=== PATIENT | male | born 1970 | race Caucasian/White ===

== ENCOUNTER 2017-09-20 10:13 | Emergency (ER) | payer SELFPAY ==
[~2017-09-20] VITALS: Ht 172.7 cm; Wt 55.0 kg
[~2017-09-20 10:13] MED LIST: AUGMENTIN875TAB PO; EC-NAPROSYN500 MG PO; FLEXERIL OR; NAPROSYN500 MG PO; TRAMADOL HYDROC50 MG PO; ULTRAM50 MG OR
[2017-09-20 10:51] LABS: HEMATOCRIT 30.4 % (39.0-50.0); HEMOGLOBIN 11.1 g/dl (14.0-18.0); MEAN CORPUSCULAR HGB 33.9 pG CALC (26.0-32.0); MEAN CORPUSCULAR HGB CONC 36.5 g/L CALC (32.0-36.0); NEUT# 8.08 thou/uL (1.82-7.42); RED BLOOD COUNT 3.27 mill/uL (4.70-6.10)
[2017-09-20] MEDS ORDERED: GLAUCOMA EYE DROPS (10:58)
[2017-09-20 11:10] LABS: ALKALINE PHOSPHATASE 135 u/l (38-126); ANION GAP 17 (6-22 (CALC)); BILIRUBIN, TOTAL 0.5 mg/dL (0.0-1.4); BUN 3 mg/dL (9-20); BUN/CREATININE RATIO 5 (12-20 (CALC)); CALCIUM 8.7 mg/dL (8.4-10.2); CARBON DIOXIDE 21 mmol/l (22-30); CHLORIDE 84 mmol/l (95-108); CREATININE 0.5 mg/dL (0.7-1.3); GFR > 60 ML/MIN (>=60 (CALC)); GFR FOR AFR.AMER. > 60 ML/MIN (>=60 (CALC)); GLUCOSE 94 mg/dL (75-110); POTASSIUM 4.2 mmol/l (3.5-5.1); SGOT/AST 36 u/l (17-59); SGPT/ALT 28 u/l (21-72); TOTAL PROTEIN 6.9 g/dL (6.3-8.2)
[2017-09-20 11:15] LABS: SODIUM 118 mmol/l (137-146)
[2017-09-20 11:22] LABS: MYOGLOBIN 21 ng/mL (0 - 121)
[2017-09-20 14:51] VITALS: BP 171/91
== END 2017-09-20 14:35 | disposition short-term general hospital (02) | DRG 641 ==
LOC: ED 10:13
PROVIDERS: Emergency Medicine
PROC: 02HV33Z Insertion of Infusion Device into Superior Vena Cava, Percutaneous Approach (ICD-10-PCS; principal; 2017-09-20)
DX: E87.1 Hypo-osmolality and hyponatremia (principal); R91.8 Other nonspecific abnormal finding of lung field; R59.0 Localized enlarged lymph nodes; F17.210 Nicotine dependence, cigarettes, uncomplicated
CPT/HCPCS: Q9967

== ENCOUNTER 2018-04-05 00:52 | Emergency (ER) | payer OTHER ==
[~2018-04-05] VITALS: Ht 167.6 cm; Wt 65.9 kg
[~2018-04-05 00:52] MED LIST changes: +GLAUCOMA EYE DROPS
[2018-04-05] MEDS ORDERED: SPIRONOLACT25 MG PO (01:09)
[2018-04-05] MEDS ORDERED: LASIX20 MG PO (01:10)
[2018-04-05] MEDS ORDERED: SOD CHLORIDE1 GM PO (01:11)
[2018-04-05] MEDS ORDERED: PERCOCET 5/321 COMBO PO (01:11)
[2018-04-05 01:38] LABS: HEMATOCRIT 29.4 % (39.0-50.0); HEMOGLOBIN 10.1 g/dl (14.0-18.0); IMMATURE GRANULOCYTES 2.2 % (0.0-1.0); MEAN CORPUSCULAR HGB 37.5 pG CALC (26.0-32.0); MEAN CORPUSCULAR HGB CONC 34.4 g/L CALC (32.0-36.0); NEUT# 13.24 thou/uL (1.82-7.42); RED BLOOD COUNT 2.69 mill/uL (4.70-6.10); RED CELL DISTRI WIDTH 17.9 % (11.5-15.5)
[2018-04-05 01:44] LABS: MEAN CELL VOLUME 109.3 fL CALC (80.0-100.0)
[2018-04-05 01:53] LABS: ALBUMIN 3.3 g/dL (3.2-5.0); ALKALINE PHOSPHATASE 509 u/l (38-126); ANION GAP 19 (6-22 (CALC)); BILIRUBIN, TOTAL 1.6 mg/dL (0.0-1.4); BUN 9 mg/dL (9-20); BUN/CREATININE RATIO 17 (12-20 (CALC)); CARBON DIOXIDE 28 mmol/l (22-30); CHLORIDE 79 mmol/l (95-108); CREATININE 0.5 mg/dL (0.7-1.3); GFR > 60 ML/MIN (>=60 (CALC)); GFR FOR AFR.AMER. > 60 ML/MIN (>=60 (CALC)); POTASSIUM 3.2 mmol/l (3.5-5.1); SGOT/AST 274 u/l (17-59); SGPT/ALT 115 u/l (21-72); SODIUM 123 mmol/l (137-146); TOTAL PROTEIN 6.1 g/dL (6.3-8.2)
[2018-04-05 02:34] LABS: URINE BLOOD DIPSTICK NEGATIVE (NEGATIVE); URINE CLARITY SL CLOUDY; URINE COLOR YELLOW; URINE GLUCOSE - DIPSTICK NEGATIVE (NEGATIVE); URINE KETONE NEGATIVE (NEGATIVE); URINE LEUK ESTERASE NEGATIVE (NEGATIVE); URINE NITRITE - DIPSTICK NEGATIVE (Negative); URINE PROTEIN - DIPSTICK TRACE mg/dL (NEG-TRACE); URINE SPECIFIC GRAVITY 1.015; URINE UROBILINOGEN - DIPSTICK 0.2 E.U./dL (0.2)
[2018-04-05 02:35] LABS: URINE BILIRUBIN - DIPSTICK SMALL (NEGATIVE)
[2018-04-05] MEDS ORDERED: MIRALAX3350 N1 PO (02:56)
[2018-04-05] MEDS ORDERED: MAGNESIUM296 ML/BTL PO (02:56)
[2018-04-05 07:00] VITALS: BP 120/80
== END 2018-04-05 07:00 | disposition home or self-care (01) | DRG 392 ==
LOC: ED 00:52
PROVIDERS: Family Medicine
DX: K59.00 Constipation, unspecified (principal); E87.1 Hypo-osmolality and hyponatremia; C34.90 Malignant neoplasm of unspecified part of unspecified bronchus or lung; C79.9 Secondary malignant neoplasm of unspecified site; F17.210 Nicotine dependence, cigarettes, uncomplicated; Z92.21 Personal history of antineoplastic chemotherapy

== ENCOUNTER 2018-04-12 01:31 | Emergency (ER) | payer OTHER ==
[~2018-04-12] VITALS: Ht 167.6 cm; Wt 70.0 kg
[~2018-04-12 01:31] MED LIST changes: +LASIX20 MG PO; +MAGNESIUM296 ML/BTL PO; +MIRALAX3350 N1 PO; +PERCOCET 5/321 COMBO PO; +SOD CHLORIDE1 GM PO; +SPIRONOLACT25 MG PO
[2018-04-12 02:05] LABS: HEMATOCRIT 28.7 % (39.0-50.0); HEMOGLOBIN 9.9 g/dl (14.0-18.0); MEAN CORPUSCULAR HGB 37.9 pG CALC (26.0-32.0); MEAN CORPUSCULAR HGB CONC 34.5 g/L CALC (32.0-36.0); PLATELET COUNT 285 thou/uL (130-400); RED BLOOD COUNT 2.61 mill/uL (4.70-6.10); RED CELL DISTRI WIDTH 16.6 % (11.5-15.5)
[2018-04-12 02:17] LABS: ALBUMIN 3.3 g/dL (3.2-5.0); ALKALINE PHOSPHATASE 585 u/l (38-126); AMYLASE 51 u/l (30-110); ANION GAP 24 (6-22 (CALC)); BILIRUBIN, TOTAL 1.7 mg/dL (0.0-1.4); BUN 16 mg/dL (9-20); BUN/CREATININE RATIO 23 (12-20 (CALC)); CARBON DIOXIDE 24 mmol/l (22-30); CHLORIDE 80 mmol/l (95-108); CREATININE 0.7 mg/dL (0.7-1.3); GFR > 60 ML/MIN (>=60 (CALC)); GFR FOR AFR.AMER. > 60 ML/MIN (>=60 (CALC)); LIPASE 169 u/l (23-300); POTASSIUM 3.6 mmol/l (3.5-5.1); SGOT/AST 176 u/l (17-59); SGPT/ALT 102 u/l (21-72); SODIUM 124 mmol/l (137-146)
[2018-04-12] MEDS ORDERED: EMBEDA 20-0.8 M1 CAP PO (02:25)
[2018-04-12 02:39] LABS: IMMATURE GRANULOCYTES 7.2 % (0.0-1.0)
[2018-04-12 02:40] LABS: BAND 1 % (0-8); MANUAL DIFFERENTIAL YES; PLATELET ESTIMATE NORMAL
[2018-04-12 04:51] LABS: INTERNATIONAL NORMALIZED RATIO 0.9 RATIO (0.7-1.3); PROTHROMBIN TIME 10.2 SECONDS (9.0-12.5)
[2018-04-12 17:17] VITALS: BP 123/78
== END 2018-04-12 17:17 | disposition hospice, inpatient (51) ==
LOC: ED 01:31
PROVIDERS: Emergency Medicine
DX: R10.13 Epigastric pain (principal); C34.90 Malignant neoplasm of unspecified part of unspecified bronchus or lung; C78.7 Secondary malignant neoplasm of liver and intrahepatic bile duct; R18.8 Other ascites; E87.1 Hypo-osmolality and hyponatremia; D72.828 Other elevated white blood cell count; D50.9 Iron deficiency anemia, unspecified